=== PATIENT | female | born 1955 | race Caucasian/White ===

== ENCOUNTER → 2020-01-02 | Outpatient (CLI) | payer MEDICARE, BC ==
[~2020-01-02] MED LIST: ALBU18HF INH; APIX2.5T PO; BUPR150T13 PO; BUPR150T8 PO; CITA20TA6 PO; FLUT9.9S NAS; HYDR-826 PO; LEVO112T2 PO; LEVO125T PO; LEVO75TA5 PO; LIDO700A20 TD; LOSA25TA25 PO; METH500T7 PO; ONDA4TAB13 PO; OXYC5TAB3 PO; SENN-177 PO; TRAM50TA2 PO; TRAZ-175 PO; celexa; levothyroxine; wellbutrin PO
== END | disposition home or self-care (01) ==
LOC: CARD 10:23
PROVIDERS: ATTEND Internal Medicine
DX: R06.2 Wheezing (principal); R05 Cough
CPT/HCPCS: 94060; 94726; 94729